=== PATIENT | male | born 1955 | race Caucasian/White ===

== ENCOUNTER 2016-06-11 10:51 | Day surgery (SDC) | payer MEDICARE ==
[~2016-06-11] VITALS: Ht 182.9 cm; Wt 136.0 kg
[~2016-06-11 10:51] MED LIST: 0.9% Sodium Chloride 1,000 ML IV SCH; HYDR28OI2 TP; LISI-567 PO; OXYC-181 PO; SILD100T PO; Sodium Chloride LOK Flush 10 mL Syringe IV PRN; [UNRECOGNIZED DRUG - CODE] MC; fentaNYL-PF 50 mCg/mL 2 mL Inj IVPUSH PRN
[2016-06-11 11:15] VITALS: BP 115/70; PULSE 69; RESP 16; O2SAT 97
[2016-06-11] MEDS ORDERED: OXYC-466 PO (11:18)
[2016-06-11 12:51] VITALS: BP 121/80; PULSE 62; RESP 14; O2SAT 96
[2016-06-11 13:16] VITALS: BP 144/83; PULSE 73; RESP 14; O2SAT 96
--- NOTE | 2016-06-11 13:21 | ENDO ---
[address] [address] ENDOSCOPY PROCEDURE PATIENT: STEFANIA OGYAL : 1955 MR#: [id number] ADMIT: 06/11/2016 JOB ID: [id number] DATE: 06/11/2016 PRIMARY PROVIDER: Geraldine Anthony MD PROCEDURE: Colonoscopy with hot snare polypectomy. INDICATIONS: A 60-year-old male with a personal history of both hyperplastic and adenomatous colon polyps returning for surveillance. EQUIPMENT: PCF H 180 AL. SEDATION: 1. 3 mg Versed. 2. 75 mcg fentanyl. COMPLICATIONS: None identified. BOWEL PREPARATION: Fair. PROCEDURAL INFORMATION: After the risks and benefits were explained, written and verbal informed consent was obtained. The patient was brought into the endoscopy suite and placed into the left lateral decubitus position. Sedation was achieved using the above-stated medications with the addition of oxygen via nasal cannula. A digital rectal examination was accomplished. Minimal internal hemorrhoids were noted. The scope was introduced into the rectum and advanced under direct visualization to the level of the cecum, as identified by the appendiceal orifice and ileocecal valve. The scope was slowly withdrawn to carefully examine the mucosa for any defects or lesions. Retroflexed views were accomplished in the rectum. The colon was decompressed. The scope removed from the patient who tolerated the procedure well. FINDINGS: Throughout the colon, there were three small polyps removed with hot snare. These were submitted in one jar. Some diverticulosis was seen in the left colon. Retroflexed views from within the rectum disclosed moderate internal hemorrhoids with hypertrophied anal papillae. No other significant pathology was appreciated throughout. ENDOSCOPIC DIAGNOSES: 1. Multiple colon polyps. 2. Diverticulosis. 3. Hemorrhoids. RECOMMENDATIONS: 1. Await histopathology. 2. Repeat colonoscopy three years.
--- NOTE | 2016-06-12 12:21 | PATH ---
SURGICAL PATHOLOGY Attending Physician:Jim Lao CASE STATUS: Signed Out PATIENT NAME: STEFANIA GOYAL PID: [id number] : 1955 DATE COLLECTED:06/11/2016 20:11 SPECIMEN: Colon, Biopsy CLINICAL HISTORY: 1). COLON POLYPS FINAL DIAGNOSIS: 1.COLON, POLYPS, BIOPSIES: TUBULAR ADENOMA IN 2 OF 4 FRAGMENTS. ICD10 CODE D12.6 GROSS DESCRIPTION: The specimen is received in one formalin filled container labeled with the patient's name, sublabeled "colon polyp" and consists of 4 portions of tissue which aggregate to 0.4 x 0.4 x 0.2 CM. Specimen is entirely submitted in one cassette. 06/11/2016 DAC MICRO DESCRIPTION: See diagnosis. ICD-9 CODES: CPT CODES: 1: 75830 Electronically Signed Out Sofy Arenas MD [facility] [address], [place] [address] Technical component performed at [facility], [facility] [address], [place], [address]
== END 2016-06-11 23:59 | disposition home or self-care (01) ==
LOC: END 10:51
PROVIDERS: ATTEND Internal Medicine Gastroenterology
DX: Z12.11 Encounter for screening for malignant neoplasm of colon (principal); Z86.010 Personal history of colon polyps; D12.6 Benign neoplasm of colon, unspecified; K57.30 Diverticulosis of large intestine without perforation or abscess without bleeding; K64.9 Unspecified hemorrhoids; I10 Essential (primary) hypertension; G25.81 Restless legs syndrome; G47.33 Obstructive sleep apnea (adult) (pediatric); M51.26 Other intervertebral disc displacement, lumbar region; M17.12 Unilateral primary osteoarthritis, left knee; E78.5 Hyperlipidemia, unspecified
CPT/HCPCS: 45385; 99153; G0500; J2250; J7030